=== PATIENT | female | born 1970 | race Caucasian/White ===

== ENCOUNTER 2019-04-06 18:30 | Emergency (ER) | payer SELFPAY ==
[2019-04-06 18:38] VITALS: BP 135/82; PULSE 74; TEMP 98.3; BMI 27.7
[2019-04-06] MEDS ORDERED: SODIUM CHLORIDE 1,000 ML IV STA (19:23)
[2019-04-06] MEDS ORDERED: KETOROLAC TROMETHAMINE 30 MG/1 ML VIAL IVPUSH ONE (19:24)
[2019-04-06] MEDS ORDERED: KETOROLAC TROMETHAMINE 30 MG/1 ML VIAL ONE (19:45)
--- NOTE | 2019-04-06 19:48 | PDOC ---
Documentation entered by Kathryn Abraham SCRIBE, acting as scribe for Meme Hastings MD. Meme Hastings MD: This documentation has been prepared by the scribe, Kathryn Abraham SCRIBE, under my direction and personally reviewed by me in its entirety. I confirm that the documentation accurately reflects all work, treatment, procedures, and medical decision making performed by me. History of Present Illness - General Chief Complaint: Pain Stated Complaint: PELVIC PAIN Time Seen by Provider: 04/06/19 19:10 History Source: Patient Exam Limitations: No Limitations - History of Present Illness Initial Comments: 04/06/19 19:33 The patient is a 48-year-old female, , with no reported past medical history presents to the emergency department with left pelvic pain. The patient presents with 5 months of constant, localized left pelvic pain, unrelieved with Motrin or Tylenol. The patient reports following up with Dr. Zambrano, from where she was referred to get a Trans-abdominal pelvic ultrasound. The ultrasound was significant for 2.5x2.3x2.1 fibroid and 7mm endometrium unremarkable. Denies fever, chills, vaginal bleeding, or discharge. LMP: April 05, 2019 Allergies: NKDA Social history: unemployed. Nonsmoker. Surgical history: Appendectomy (10 years ago) Past History - Past Medical History Allergies/Adverse Reactions: Allergies Allergy/AdvReac Type Severity Reaction Status Date / Time No Known Allergies Allergy Verified 04/06/19 18:38 Home Medications: Ambulatory Orders NK [No Known Home Medication] 04/06/19 COPD: No Other medical history: fibroids and ovarian cysts - Suicide/Smoking/Psychosocial Hx Smoking History: Never smoked Review of Systems - Review of Systems Able to Perform ROS?: Yes Comments:: 04/06/19 19:22 CONSTITUTIONAL: Absent: fever, chills, diaphoresis, generalized weakness, malaise, loss of appetite HEENT: Absent: rhinorrhea, nasal congestion, throat pain, throat swelling, difficulty swallowing, mouth swelling, ear pain, eye pain, visual Changes CARDIOVASCULAR: Absent: chest pain, syncope, palpitations, irregular heart rate, lightheadedness , peripheral edema RESPIRATORY: Absent: cough, shortness of breath, dyspnea with exertion, orthopnea, wheezing, stridor, hemoptysis GASTROINTESTINAL: +left groin pain. Absent: no other abdominal pain, abdominal distension, nausea, vomiting, diarrhea, constipation, melena, hematochezia GENITOURINARY: Absent: dysuria, frequency, urgency, hesitancy, hematuria, flank pain, genital pain MUSCULOSKELETAL: Absent: myalgia, arthralgia, joint swelling SKIN: Absent: rash, itching, pallor HEMATOLOGIC/IMMUNOLOGIC: Absent: easy bleeding, easy bruising, lymphadenopathy, frequent infections ENDOCRINE: Absent: unexplained weight gain, unexplained weight loss, heat intolerance, cold intolerance NEUROLOGIC: Absent: headache, focal weakness or paresthesias, dizziness, unsteady gait, seizure, mental status changes, bladder or bowel incontinence PSYCHIATRIC: Absent: anxiety, depression, suicidal or homicidal ideation, hallucinations. *Physical Exam - Vital Signs Last Vital Signs Temp Pulse Resp BP Pulse Ox 98.3 F 74 18 135/82 99 04/06/19 18:32 04/06/19 18:32 04/06/19 18:32 04/06/19 18:32 04/06/19 18:32 - Physical Exam Comments: 04/06/19 19:22 GENERAL: Well developed, well nourished. Awake and alert. No acute distress. HEENT: Normocephalic, atraumatic. PERRLA, EOMI. No conjunctival pallor. Sclera are non- icteric. Moist mucous membranes. Oropharynx is clear. NECK: Supple. Full ROM. No JVD. CARDIOVASCULAR: Regular rate and rhythm. No murmurs, rubs, or gallops. PULMONARY: No evidence of respiratory distress. Lungs clear to auscultation bilaterally. No wheezing, rales or rhonchi. ABDOMINAL:+left supra-pubic/groin pain, pain is localized. Soft. Non-distended. No rebound or guarding. MUSCULOSKELETAL Normal range of motion at all joints. No bony deformities. EXTREMITIES: No cyanosis. No clubbing. No edema. SKIN: Warm and dry. Normal capillary refill. No rashes. No jaundice. NEUROLOGICAL: Alert, awake, appropriate. Cranial nerves 2-12 intact. PSYCHIATRIC: Cooperative. Good eye contact. Appropriate mood and affect. ED Treatment Course - LABORATORY CBC & Chemistry Diagram: 04/06/19 19:50 04/06/19 19:50 - RADIOLOGY Radiology Studies Ordered: Category Date Time Status TRANSVAGINAL ULTRASOUND US [US] Stat Ultrasound 04/06/19 19:24 Ordered Medical Decision Making - Medical Decision Making 04/06/19 19:37 48 yo female with left pelvic pain x 5 months who had pelvic abdominal US in February that showed small fibroid ,normal uterus and small ovarian follicular cyst -she had a copy of the transabdominal ultrasound PSH appendectomy PMH social history no tobacco use,no etoh use 04/06/19 19:46 Diff diag: endometriosis, UTI,kidney stone plan: labs, transvaginal US,ct scan abd/pel,pain meds 04/06/19 21:16 EXAM: Pelvic ultrasound, transabdominal and transvaginal with duplex of ovaries FINDINGS: Mild leiomyomatous uterus. Normal endometrial stripe measuring 8 mm. 3.1 cm mildly complex left ovarian cyst. 1.5 cm simple right ovarian cyst. Duplex Ultrasound: Appropriate arterial and/or venous flow are noted in both ovaries, making torsion unlikely at this time. Mild free pelvic fluid. THIS DOCUMENT HAS BEEN ELECTRONICALLY SIGNED Nimesh Hackett MD 04/06/2019 21:04 EST *DC/Admit/Observation/Transfer Diagnosis at time of Disposition: Complex cyst of left ovary, Pelvic pain - Discharge Dispostion Disposition: HOME Condition at time of disposition: Stable - Referrals - Patient Instructions Printed Discharge Instructions: DI for Pelvic Pain, DI for Ovarian Cyst Additional Instructions: Take motrin for pain Please follow up with your clinical research assistant - Post Discharge Activity
[2019-04-06 19:58] LABS: BASO % 0.3 % (0-2.0); HEMATOCRIT 31.7 % (32.4-45.2); HEMOGLOBIN 10.2 GM/dL (10.7-15.3); LYMPH % 23.9 % (8-40); MCH 25.4 pg (25.7-33.7); MCHC 32.2 g/dl (32.0-36.0); MEAN CELL VOLUME 78.8 fl (80-96); MEAN PLT VOLUME 7.5 fl (7.5-11.1); MONO % 9.6 % (3.8-10.2); NEUT % 60.2 % (42.8-82.8); PLATELET COUNT 294 K/MM3 (134-434); RBC 4.03 M/mm3 (3.60-5.2); RDW 16.4 % (11.6-15.6)
[2019-04-06 20:03] LABS: EPI CELLS 4.9 /HPF (0-5/HPF); HYALINE CASTS 0 /lpf (0-8); URINE APPEARANCE CLEAR; URINE BACTERIA 36.9 /hpf (NEGATIVE); URINE BILIRUBIN NEGATIVE (NEGATIVE); URINE COLOR ORANGE; URINE GLUCOSE (UA) NEGATIVE (NEGATIVE); URINE KETONE NEGATIVE (NEGATIVE); URINE LEUK ESTERASE 2+ (NEGATIVE); URINE NITRITE NEGATIVE (NEGATIVE); URINE PROTEIN NEGATIVE (NEGATIVE); URINE RBC 81 /hpf (0-4); URINE UROBILINOGEN 0.2 mg/dL (0.2-1.0); URINE WBC 12 /hpf (0-5)
[2019-04-06 20:25] LABS: ALBUMIN 3.7 g/dl (3.4-5.0); BILIRUBIN,TOTAL 0.2 mg/dL (0.2-1); BLOOD UREA NITROGEN 9.5 mg/dL (7-18); CALCIUM 9.1 mg/dL (8.5-10.1); CREATININE 0.7 mg/dL (0.55-1.3); POTASSIUM 4.1 mmol/L (3.5-5.1); TOT PROT 7.4 g/dl (6.4-8.2)
== END 2019-04-06 22:14 | disposition home or self-care (01) ==
LOC: JER 18:30
PROC: 3E0337Z Introduction of Electrolytic and Water Balance Substance into Peripheral Vein, Percutaneous Approach (ICD-10-PCS; principal; 2019-04-06)
PROC: 3E0333Z Introduction of Anti-inflammatory into Peripheral Vein, Percutaneous Approach (ICD-10-PCS; 2019-04-06)
DX: N83.292 Other ovarian cyst, left side (principal); N83.291 Other ovarian cyst, right side; D25.9 Leiomyoma of uterus, unspecified
CPT/HCPCS: 36415; 76830-TC; 80053; 81003; 84703; 85025; 99282-25; J7030